=== PATIENT | male | born 1990 | race Caucasian/White ===

== ENCOUNTER 2022-09-09 13:22 | Day surgery (SDC) | payer OTHER ==
[~2022-09-09] VITALS: Ht 188 cm; Wt 115.6 kg
[2022-09-09] VITALS (9 sets, daily range): BP systolic 128–155; BP diastolic 71–94
[~2022-09-09 13:22] MED LIST: cefazolin 2gm/D5W 100mL 100 ML IV ONE
[2022-09-09] MEDS ORDERED: famotidine 20mg tablet PO ONE (13:25)
[2022-09-09] MEDS ORDERED: ringers solution, lacted 1,000 ML IV ONE (13:35)
[2022-09-09] MEDS ORDERED: BUPIVAcaine/PF 2.5 mg/ml (0.25%) 30ml vial ONE ×2 (13:43→17:22)
[2022-09-09] MEDS ORDERED: morphine 2 MG/ML inj. syringe IV PRN (14:25)
[2022-09-09] MEDS ORDERED: proCHLORperazine 10 MG/2 ml inj IV PRN (14:25)
[2022-09-09] MEDS ORDERED: ondansetron/PF 4mg/2ml inj IV PRN (14:25)
[2022-09-09] MEDS ORDERED: ringers solution, lacted 1,000 ML IV SCH (14:25)
[2022-09-09] MEDS ORDERED: meperidine/PF 25mg/ml syringe IV PRN ×3 (14:25)
[2022-09-09] MEDS ORDERED: morphine 4 MG/ML inj SYRINge IV PRN (14:25)
[2022-09-09 14:39] LABS: BASOPHILS % (AUTO) 0.6 % (0-1); EOSINOPHILS # (AUTO) 0.1 X10'3 (0-0.9); EOSINOPHILS % (AUTO) 1.2 % (0-6); LYMPHOCYTES # (AUTO) 1.6 X10'3 (1.1-4.8); LYMPHOCYTES % (AUTO) 20.3 % (21-51); MEAN CORPUSCULAR HEMOGLOBIN 28.9 PG (27.0-31.0); MEAN CORPUSCULAR VOLUME 87.5 FL (78-98); MONOCYTES # (AUTO) 0.8 X10'3 (0-0.9); MONOCYTES % (AUTO) 9.8 % (2-12); NEUTROPHILS # (AUTO) 5.5 X10'3 (1.8-7.7); NEUTROPHILS % (AUTO) 68.1 % (42-75); PRE OP HEMATOCRIT 44.8 % (42.0-52.0); PRE OP HEMOGLOBIN 14.8 g/dL (14.0-17.9); PRE OP PLATELET COUNT 253 X10'3 (140-440); RED BLOOD COUNT 5.12 X10'6 (4.70-6.10)
[2022-09-09 14:45] LABS: ALBUMIN 4.1 G/DL (3.4-5.0); ALBUMIN/GLOBULIN RATIO 1.3 (1.1-1.5); ALKALINE PHOSPHATASE 81 IU/L (46-116); BLOOD UREA NITROGEN 18 MG/DL (7-18); BUN/CREATININE RATIO 20.9 (10.0-20.0); CALCIUM 9.1 MG/DL (8.5-10.1); CHLORIDE 100 MMOL/L (99-107); CREATININE 0.86 MG/DL (0.60-1.10); PRE OP ALT 27 U/L (30-65); PRE OP ANION GAP 11 (8-16); PRE OP GLUCOSE 85 MG/DL (70-104); PRE OP SODIUM 136 MMOL/L (135-145); TOTAL CARBON DIOXIDE 25.5 MMOL/L (24-32); TOTAL PROTEIN 7.3 G/DL (6.4-8.2); eGFR > 90 ML/MIN
[2022-09-09 14:58] LABS: PRE OP AST 28 U/L (10-37); PRE OP BILIRUB, TOTAL 0.9 MG/DL (0.0-1.0); PRE OP POTASSIUM 4.2 MMOL/L (3.4-5.1)
[2022-09-09] MEDS ORDERED: BUPIVAcaine/PF 2.5 mg/ml (0.25%) 30ml vial IJ ONE (16:00)
[2022-09-09] MEDS ORDERED: rocuronium 10mg/ml inj IV ONE (16:15)
[2022-09-09] MEDS ORDERED: fentaNYL /PF 50mcg/ml 5ml ampule ONE (16:15)
[2022-09-09] MEDS ORDERED: midazolam 1 mg/ML 2ml injection ONE (16:15)
[2022-09-09] MEDS ORDERED: propofol inj 20 ML IV ONE (16:16)
[2022-09-09] MEDS ORDERED: acetaminophen 1,000mg/100ml IV 100 ML IV ONE (17:15)
[2022-09-09] MEDS ORDERED: dexamethasone sod phosphate 4mg/ml inj. ONE (17:20)
[2022-09-09] MEDS ORDERED: BUPIVAcaine/PF 2.5mg/ml (0.25%) 10ml vial ONE (17:22)
[2022-09-09] MEDS ORDERED: BUPIVACAINE liposomal/PF 13.3 MG/ML vial IM ONE (17:22)
[2022-09-09] MEDS ORDERED: bacitracin 15gm ointment TP ONE (17:22)
[2022-09-09] MEDS ORDERED: neostigmine methylsulfate 1 MG/ML 10ml vial ONE (17:38)
[2022-09-09] MEDS ORDERED: glycopyrrolate 0.2mg/ml inj ONE (17:46)
--- NOTE | 2022-09-09 17:49 | NUR ---
Received from OR via , accompanied by Anesthesiologist SHARI AND OR NURSE and report given by Anesthesiolgist. PT IS DROWSY YET ABLE TO RESPOND TO VERBAL COMMANDS. DENIES PAIN OR DISCOMFORT YET VISIBLY HAS SHIVERS; DEMEROL GIVEN. 5 LAP SITES-4 WITH DERMABOND AND ONE UMBILICAL WITH BANDAID; CDI. VSS Addendum: 09/09/22 at 1802 by Radha Claudio RN Amended: Links added.
[2022-09-09] MEDS ORDERED: HYDROcodone/acetaminophen 10/325mg tab PO ONE (18:30)
[2022-09-09] MEDS ORDERED: ESCI5TAB17 PO (18:43)
[2022-09-09] MEDS ORDERED: LISI20TA28 PO (18:43)
[2022-09-09] MEDS ORDERED: ondansetron 4mg rapidly disintigrating tab PO ONE (19:00)
== END 2022-09-09 19:09 | disposition home or self-care (01) ==
LOC: PAS 13:22
PROVIDERS: ATTEND Surgery
DX: K42.0 Umbilical hernia with obstruction, without gangrene (principal); I10 Essential (primary) hypertension; J45.909 Unspecified asthma, uncomplicated; E66.9 Obesity, unspecified; Z68.32 Body mass index [BMI] 32.0-32.9, adult; F41.9 Anxiety disorder, unspecified; Z87.891 Personal history of nicotine dependence; Z79.899 Other long term (current) drug therapy; Z98.890 Other specified postprocedural states; Z72.89 Other problems related to lifestyle; Z80.1 Family history of malignant neoplasm of trachea, bronchus and lung
CPT/HCPCS: 36415; 49592; 64488; 80053; 82948; 85025; C1713; C1776; C1781; C9290; J0131; J0690; J1100; J2175; J2250; J2704; J2710; J3010; J3490; J7030; J7120; Z7506; Z7508; Z7512; A4618; A7000